=== PATIENT | female | born 1990 | race Caucasian/White ===

== ENCOUNTER 2018-06-01 07:06 | Inpatient (IN) | payer OTHER ==
--- NOTE | 2018-06-01 07:30 | PCM.LDHP ---
L&D History of Present Illness - General Date of Service: 06/01/18 Admit Problem/Dx: Admission Diagnosis/Problem Admission Diagnosis/Problem Source of Information: Patient History Limitations: Reports: No Limitations - History of Present Illness Introduction:: 27 yo at 39 weeks 1 day presents to labor and delivery for term induction of labor. No contractions today. No LOF, No VB. Good movement routine care Previous 1st Trimester SAB. GBS negative O negative STD negative Improves with: Reports: None Worsens with: Reports: None - Related Data Allergies/Adverse Reactions: Allergies Allergy/AdvReac Type Severity Reaction Status Date / Time No Known Allergies Allergy Verified 12/31/14 21:53 Home Medications: Home Meds Calcium Carbonate/Vitamin D3 [Calcium 600 + Vit D 400] 1 each PO DAILY 12/24/14 [History] Vit No.130/Iron/FA [ Vitamins] 1 each PO DAILY 12/24/14 [ History] Past Medical History HEENT History: Reports: Allergic Rhinitis - Past Surgical History Female Surgical History: Reports: Breast Biopsy Social & Family History - Living Situation & Occupation Living situation: Reports: H&P Review of Systems - Review of Systems: Review Of Systems: See Below General: Reports: No Symptoms HEENT: Reports: No Symptoms Pulmonary: Reports: No Symptoms Cardiovascular: Reports: No Symptoms Gastrointestinal: Reports: No Symptoms Genitourinary: Reports: No Symptoms Musculoskeletal: Reports: No Symptoms Skin: Reports: No Symptoms Psychiatric: Reports: No Symptoms Neurological: Reports: No Symptoms Hematologic/Lymphatic: Reports: No Symptoms Immunologic: Reports: No Symptoms L&D Exam - Exam Exam: See Below - OB Specific Movement: Active Heart Tones: Present Heart Tones per Min: 135 Heart Rate (FHR) Variability: Moderate (6-25 bmp) Presentation: Vertex Estimated Weight: 3250 - Mansfield Score Mansfield Score Cervix Position: Midposition Mansfield Score Consistency: Medium Mansfield Score Effacement: 31-50% Mansfield Score Dilation: 1-2 cm Mansfield Score 's Station: -3 Mansfield Score Total: 4 - Exam General: Alert, Oriented Genitourinary: Normal external exam Extremities: No Pedal Edema Skin: Warm, Dry Psychiatric: Alert, Normal Affect, Normal Mood Problem List Initiated/Reviewed/Updated: Yes Assessment/Plan Comment:: 27 yo at 39 w 1 d gestation presents for elective term induction of labor. Plan: Cytotec, plan to follow with pitocin. GBS negative-no antibiotics needed. Pain control per patient request.
[2018-06-01] MEDS ORDERED: Misoprostol 25 MCG (1/4 of 100 MCG) Tab VAG PRN (07:42)
[2018-06-01] MEDS ORDERED: Sodium Chloride 0.9% 10 ML Syringe FLUSH PRN ×2 (07:42→07:45)
[2018-06-01] MEDS ORDERED: Lactated Ringers 1,000 ML IV SCH ×2 (07:45)
[2018-06-01] MEDS ORDERED: Oxytocin/Lactated Ringers 10 UNIT/1,000 ML BAG IV SCH ×2 (07:45→17:00)
[2018-06-01] MEDS ORDERED: Nalbuphine 20 MG/ML 1 ML Syringe IVPUSH PRN (07:45)
[2018-06-01] MEDS ORDERED: fentaNYL 100 MCG/2 ML SDV EPIDUR PRN (11:32)
[2018-06-01] MEDS ORDERED: ePHEDrine 50 MG/ML SDV IVPUSH PRN (11:32)
[2018-06-01] MEDS ORDERED: Bupivacaine/fentaNYL/NS 100 ML Bag EPIDUR SCH (11:45)
--- NOTE | 2018-06-01 13:42 | PCM.PREANE ---
Preanesthetic Assessment - Anesthesia/Transfusion/Family Hx Anesthesia History: Prior Anesthesia Without Reaction Family History of Anesthesia Reaction: No Transfusion History: No Prior Transfusion(s) - Review of Systems General: No Symptoms Pulmonary: No Symptoms Cardiovascular: No Symptoms Gastrointestinal: Abdominal Pain (contractions) Neurological: No Symptoms Other: Reports: None - Physical Assessment Pulse: 86 O2 Sat by Pulse Oximetry: 98 Respiratory Rate: 18 Blood Pressure: 118/50 Temperature: 37.4 C Vital Signs: Last Vital Signs Temp 37.4 C 06/01/18 07:42 Pulse 81 06/01/18 07:42 Resp 18 06/01/18 07:42 BP 118/50 L 06/01/18 07:42 Pulse Ox 98 06/01/18 07:42 Height: 1.68 m Weight: 83.098 kg ASA Class: 2 Mental Status: Alert & Oriented x3 Airway Class: Mallampati = 1 Dentition: Reports: Normal Dentition Thyro-Mental Finger Breadths: 3 Mouth Opening Finger Breadths: 3 ROM/Head Extension: Full Lungs: Clear to Auscultation, Normal Respiratory Effort Cardiovascular: Regular Rate, Regular Rhythm - Lab Values: Laboratory Last Values WBC 9.58 K/mm3 (3.98-10.04) 06/01/18 08:05 RBC 4.33 M/mm3 (3.98-5.22) 06/01/18 08:05 Hgb 13.1 gm/L (11.2-15.7) 06/01/18 08:05 Hct 38.3 % (34.1-44.9) 06/01/18 08:05 MCV 88.5 fl (79.4-94.8) 06/01/18 08:05 MCH 30.3 pg (25.6-32.2) 06/01/18 08:05 MCHC 34.2 g/dl (32.2-35.5) 06/01/18 08:05 RDW Std Deviation 41.3 fL (36.4-46.3) 06/01/18 08:05 Plt Count 159 K/mm3 (182-369) L 06/01/18 08:05 MPV 10.4 fl (9.4-12.3) 06/01/18 08:05 RPR Non-reactive (NONREACTIVE) 06/01/18 08:05 - Allergies Allergies/Adverse Reactions: Allergies Allergy/AdvReac Type Severity Reaction Status Date / Time No Known Allergies Allergy Verified 12/31/14 21:53 - Anesthesia Plan Pre-Op Medication Ordered: None - Acknowledgements Anesthesia Type Planned: Epidural Pt an Appropriate Candidate for the Planned Anesthesia: Yes Alternatives and Risks of Anesthesia Discussed w Pt/Guardian: Yes Pt/Guardian Understands and Agrees with Anesthesia Plan: Yes PreAnesthesia Questionnaire HEENT History: Reports: Allergic Rhinitis Gastrointestinal History: Reports: GERD [employer]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: - Past Surgical History Female Surgical History: Reports: Breast Biopsy - SUBSTANCE USE Smoking Status *Q: Never Smoker Tobacco Use Within Last Twelve Months: No Second Hand Smoke Exposure: No Recreational Drug Use History: No - HOME MEDS Home Medications: Home Meds Calcium Carbonate/Vitamin D3 [Calcium 600 + Vit D 400] 1 each PO DAILY 12/24/14 [History] Vit No.130/Iron/FA [ Vitamins] 1 each PO DAILY 12/24/14 [ History] - CURRENT (IN HOUSE) MEDS Current Meds: Current Medications Ephedrine Sulfate (Ephedrine Sulfate) 5 mg IVPUSH ASDIRECTED PRN PRN Reason: HYPOTENTSION Fentanyl (Sublimaze) 100 mcg EPIDUR Q3H PRN PRN Reason: Pain Last Admin: 06/01/18 13:35 Dose: 100 mcg Fentanyl/Bupivacaine HCl (Fentanyl/Bupivacaine/Ns 2 Mcg-0.125% 100 Ml) 100 ml EPIDUR ASDIRECTED CAITLIN Last Admin: 06/01/18 13:35 Dose: 100 ml Lactated Ringer's (Ringers, Lactated) 1,000 mls @ 40 mls/hr IV ASDIRECTED CAITLIN Last Admin: 06/01/18 08:40 Dose: 40 mls/hr Oxytocin/Lactated Ringer's (Pitocin In Lr 10 Units/1,000 Ml) 10 unit in 1,000 mls @ 12 mls/hr IV TITRATE CAITLIN; Protocol Last Admin: 06/01/18 12:57 Dose: 2 munits/min, 12 mls/hr Lactated Ringer's (Ringers, Lactated) 1,000 mls @ 100 mls/hr IV ASDIRECTED CAITLIN Misoprostol (Cytotec) 25 mcg VAG Q4H PRN PRN Reason: cervical ripening Last Admin: 08/30/18 08:40 Dose: 25 mcg Nalbuphine HCl (Nubain) 10 mg IVPUSH Q2H PRN PRN Reason: pain Sodium Chloride (Saline Flush) 10 ml FLUSH ASDIRECTED PRN PRN Reason: Keep Vein Open Discontinued Medications Sodium Chloride (Saline Flush) 10 ml FLUSH ASDIRECTED PRN PRN Reason: Keep Vein Open
[2018-06-01] MEDS ORDERED: Lanolin 100% Cream 7 GM Tube TOP PRN (17:00)
[2018-06-01] MEDS ORDERED: Witch Hazel Medicated Pads 100/Jar TOP PRN (17:00)
[2018-06-01] MEDS ORDERED: Benzocaine/Menthol 20%-0.5% Spray 56 GM Canister TOP PRN (17:00)
--- NOTE | 2018-06-01 17:00 | PCM.DEL ---
L & D Note - General Info Date of Service: 06/01/18 Mother's Due Date: 05/08/18 - Delivery Note Labor: Augmented by Oxytocin Cervical Ripening Method: Prostaglandin E2 Delivery Outcome: Livebirth Infant Delivery Method: Spontaneous Vaginal Delivery-Single Infant Delivery Mode: Spontaneous Presentation: Left Occiput Anterior (BRANDYN) Nuchal Cord: None Anesthesia Type: Epidural Amniotic Fluid Description: Clear Episiotomy Type: Midline Laceration: 2nd Degree Suture type: Vicryl Suture size: 3-0 Placenta: Intact, Spontaneous Cord: 3 Vessels Estimated Blood Loss: 300 Resuscitation Needed: No Provider: Lori Cruz Delivery Comments (Free Text/Narrative):: AGA infant male born to mom at 39 weeks gestation via vaginal delivery. Epidural anesthesia. Midline episiotomy extended to 2nd degree laceration repaired in usual fashion with 3-0 vicryl suture. weight 8lbs 3 ounces. Apgars 8&9. EBL 300. Infant and mother in recovery room in stable condition. - General Info Date of Service: 06/01/18 - Patient Data Vitals - Most Recent: Last Vital Signs Temp 37.4 C 06/01/18 13:42 Pulse 86 06/01/18 13:42 Resp 18 06/01/18 13:42 BP 118/50 L 06/01/18 13:42 Pulse Ox 98 06/01/18 13:42 Weight - Most Recent: 83.098 kg I&O - Last 24 Hours: Intake & Output 06/01/18 06/01/18 06/01/18 06:59 14:59 22:59 Intake Total 1000 Balance 1000 Lab Results Last 24 Hours: Laboratory Results - last 24 hr 06/01/18 06/01/18 Range/Units 08:05 08:05 WBC 9.58 (3.98-10.04) K/mm3 RBC 4.33 (3.98-5.22) M/mm3 Hgb 13.1 (11.2-15.7) gm/L Hct 38.3 (34.1-44.9) % MCV 88.5 (79.4-94.8) fl MCH 30.3 (25.6-32.2) pg MCHC 34.2 (32.2-35.5) g/dl RDW Std Deviation 41.3 (36.4-46.3) fL Plt Count 159 L (182-369) K/mm3 MPV 10.4 (9.4-12.3) fl RPR Non-reactive (NONREACTIVE) Med Orders - Current: Current Medications Ephedrine Sulfate (Ephedrine Sulfate) 5 mg IVPUSH ASDIRECTED PRN PRN Reason: HYPOTENTSION Fentanyl (Sublimaze) 100 mcg EPIDUR Q3H PRN PRN Reason: Pain Last Admin: 06/01/18 13:35 Dose: 100 mcg Fentanyl/Bupivacaine HCl (Fentanyl/Bupivacaine/Ns 2 Mcg-0.125% 100 Ml) 100 ml EPIDUR ASDIRECTED CAITLIN Last Admin: 06/01/18 13:35 Dose: 100 ml Lactated Ringer's (Ringers, Lactated) 1,000 mls @ 40 mls/hr IV ASDIRECTED CAITLIN Last Admin: 06/01/18 08:40 Dose: 40 mls/hr Oxytocin/Lactated Ringer's (Pitocin In Lr 10 Units/1,000 Ml) 10 unit in 1,000 mls @ 12 mls/hr IV TITRATE CAITLIN; Protocol Last Admin: 06/01/18 12:57 Dose: 2 munits/min, 12 mls/hr Lactated Ringer's (Ringers, Lactated) 1,000 mls @ 100 mls/hr IV ASDIRECTED CAITLIN Last Admin: 06/01/18 13:35 Dose: 100 mls/hr Misoprostol (Cytotec) 25 mcg VAG Q4H PRN PRN Reason: cervical ripening Last Admin: 06/01/18 08:40 Dose: 25 mcg Nalbuphine HCl (Nubain) 10 mg IVPUSH Q2H PRN PRN Reason: pain Sodium Chloride (Saline Flush) 10 ml FLUSH ASDIRECTED PRN PRN Reason: Keep Vein Open Discontinued Medications Sodium Chloride (Saline Flush) 10 ml FLUSH ASDIRECTED PRN PRN Reason: Keep Vein Open - Problem List Review Problem List Initiated/Reviewed/Updated: Yes - My Orders Last 24 Hours: My Active Orders 06/01/18 07:42 Patient Status [ADT] Routine Communication Order [RC] ASDIRECTED Communication Order [RC] ASDIRECTED Communication Order [RC] ASDIRECTED Notify Provider [RC] ASDIRECTED Vital Signs [RC] ASDIRECTED Sodium Chloride 0.9% [Saline Flush] 10 ml FLUSH ASDIRECTED PRN miSOPROStol [Cytotec] 25 mcg VAG Q4H PRN Peripheral IV Insertion Adult [OM.PC] Routine 06/01/18 07:43 Peripheral IV Care [RC] . DIRECTED 06/01/18 07:45 Activity as Tolerated [RC] PFP Communication Order [RC] ASDIRECTED Non Stress Test [RC] PER UNIT ROUTINE Notify Provider [RC] PFP Notify Provider [RC] PRN Peripheral IV Care [RC] . DIRECTED Lactated Ringers [Ringers, Lactated] 1,000 ml IV ASDIRECTED Lactated Ringers [Ringers, Lactated] 1,000 ml IV ASDIRECTED Nalbuphine [Nubain] 10 mg IVPUSH Q2H PRN Oxytocin/Lactated Ringers [Pitocin in LR 10 Units/1,000 ML] 10 unit in 1,000 ml IV TITRATE Electronic Heart Tones Ext w TOCO [WOMSER] Routine Electronic Heart Tones Internal [WOMSER] Per Unit Routine Peripheral IV Insertion Adult [OM.PC] Routine Resuscitation Status Routine 06/01/18 Breakfast Regular Diet [DIET] - Plan Plan:: 27 yo at 39 w 1 d gestation presents for elective term induction of labor. Plan: Cytotec, plan to follow with pitocin. GBS negative-no antibiotics needed. Pain control per patient request.
[2018-06-01] MEDS ORDERED: Sertraline 50 MG Tab PO SCH (17:15)
[2018-06-01] MEDS ORDERED: Bupivacaine 0.25% 10 ML SDV ONE (22:00)
[2018-06-01] MEDS: Acetaminophen 325 MG Tab PO PRN (22:54)
[2018-06-02] MEDS: Acetaminophen 325 MG Tab PO PRN ×4 (06:02→17:52)
--- NOTE | 2018-06-02 10:35 | PCM48HPAN ---
Post Anesthesia Note - EVALUATION WITHIN 48HRS OF ANESTHETIC Vital Signs in Normal Range: Yes Patient Participated in Evaluation: Yes Respiratory Function Stable: Yes Airway Patent: Yes Cardiovascular Function Stable: Yes Hydration Status Stable: Yes Pain Control Satisfactory: Yes Nausea and Vomiting Control Satisfactory: Yes Mental Status Recovered: Yes
--- NOTE | 2018-06-02 12:56 | PCM.PRNOTE ---
- Free Text/Narrative Note: taken to procedure room and placed on the circumcision board. anesthesia provided with 0.8 cc of lidocaine without epi as a dorsal penile nerve block. circumcision completed in usual fashion. [place] Circumcision - Circumcision Procedure Time Out Performed: Yes Circumcision Performed By: Lori Cruz Anesthesia: Topical Analgesic Cream Device Used: gomco Dressing applied by: by provider Complications: No Condition: Good
--- NOTE | 2018-06-02 13:05 | PCM.DCSUM1 ---
Discharge Summary - Hospital Course Free Text/Narrative:: 27 yo at ppd #1 s/p vaginal delivery pain controlled lochia normal has been going well. Rhogam administered. d/c to home f/u [facility] in 6-8 weeks Diagnosis: Stroke: No - Discharge Data Discharge Date: 06/02/18 Discharge Disposition: Home, Self-Care 01 Condition: Good - Patient Instructions Diet: Usual Diet as Tolerated Activity: As Tolerated Driving: May Drive Today Showering/Bathing: May Shower Notify Provider of: Fever, Increased Pain, Swelling and Redness, Drainage, Nausea and/or Vomiting - Discharge Plan *PRESCRIPTION DRUG MONITORING PROGRAM REVIEWED*: Not Applicable *COPY OF PRESCRIPTION DRUG MONITORING REPORT IN PATIENT BECKI: Not Applicable Prescriptions/Med Rec: Sertraline [Zoloft] 50 mg PO DAILY #90 tablet Home Medications: Home Meds Calcium Carbonate/Vitamin D3 [Calcium 600 + Vit D 400] 1 each PO DAILY 12/24/14 [History] Vit No.130/Iron/FA [ Tablet] 1 each PO DAILY 12/24/14 [History] Benzocaine/Menthol [Dermoplast Pain Relief [place]] 1 applic TOP ASDIRECTED PRN canister 06/02/18 [Rx] Lanolin [Lansinoh HPA] 1 applic TOP ASDIRECTED PRN tube 06/02/18 [Rx] Sertraline [Zoloft] 50 mg PO DAILY #90 tablet 06/02/18 [Rx] Witch Riddhi [Tucks] 1 pad TOP ASDIRECTED PRN pad 06/02/18 [Rx] Patient Handouts: , Vaginal Delivery, Care After Referrals: Lori Cruz MD [Primary Care Provider] - (6-8 weeks ) - Discharge Summary/Plan Comment DC Time >30 min.: No - General Info Date of Service: 06/02/18 Functional Status: Reports: Pain Controlled, Tolerating Diet, Ambulating - Patient Data Vitals - Most Recent: Last Vital Signs Temp 36.7 C 06/02/18 08:51 Pulse 82 06/02/18 08:51 Resp 16 06/02/18 08:51 BP 102/64 06/02/18 08:51 Pulse Ox 98 06/02/18 08:51 Weight - Most Recent: 83.098 kg I&O - Last 24 hours: Intake & Output 08/30/18 08/31/18 08/31/18 22:59 06:59 14:59 Intake Total 2360 300 Balance 2360 300 Lab Results - Last 24 hrs: Laboratory Results - last 24 hr 06/01/18 06/02/18 Range/Units 08:05 10:05 RPR Non-reactive (NONREACTIVE) Blood Type O NEGATIVE Gel Antibody Screen Positive Screen 0 ros/5 flds - neg RhIG Candidate? Yes Rhogam Indicated Yes, baby rh pos H Med Orders - Current: Current Medications Acetaminophen (Tylenol) 650 mg PO Q4H PRN PRN Reason: Pain Last Admin: 06/02/18 10:05 Dose: 650 mg Benzocaine/Menthol (Dermoplast Pain Relief [place]) 0 gm TOP ASDIRECTED PRN PRN Reason: Perineal Comfort Measure Last Admin: 06/01/18 19:34 Dose: 1 canister Emollient Ointment (Lansinoh Hpa) 0 gm TOP ASDIRECTED PRN PRN Reason: Sore Nipples Ephedrine Sulfate (Ephedrine Sulfate) 5 mg IVPUSH ASDIRECTED PRN PRN Reason: HYPOTENTSION Fentanyl (Sublimaze) 100 mcg EPIDUR Q3H PRN PRN Reason: Pain Last Admin: 06/01/18 13:35 Dose: 100 mcg Fentanyl/Bupivacaine HCl (Fentanyl/Bupivacaine/Ns 2 Mcg-0.125% 100 Ml) 100 ml EPIDUR ASDIRECTED CAITLIN Last Admin: 06/01/18 13:35 Dose: 100 ml Lactated Ringer's (Ringers, Lactated) 1,000 mls @ 40 mls/hr IV ASDIRECTED CAITLIN Last Admin: 06/01/18 08:40 Dose: 40 mls/hr Oxytocin/Lactated Ringer's (Pitocin In Lr 10 Units/1,000 Ml) 10 unit in 1,000 mls @ 12 mls/hr IV TITRATE CAITLIN; Protocol Last Admin: 06/01/18 12:57 Dose: 2 munits/min, 12 mls/hr Lactated Ringer's (Ringers, Lactated) 1,000 mls @ 100 mls/hr IV ASDIRECTED CAITLIN Last Admin: 06/01/18 13:35 Dose: 100 mls/hr Oxytocin/Lactated Ringer's (Pitocin In Lr 10 Units/1,000 Ml) 10 unit in 1,000 mls @ 500 mls/hr IV TITRATE [facility] Misoprostol (Cytotec) 25 mcg VAG Q4H PRN PRN Reason: cervical ripening Last Admin: 06/01/18 08:40 Dose: 25 mcg Nalbuphine HCl (Nubain) 10 mg IVPUSH Q2H PRN PRN Reason: pain Sertraline HCl (Zoloft) 50 mg PO DAILY CAITLIN Last Admin: 06/02/18 08:47 Dose: 50 mg Sodium Chloride (Saline Flush) 10 ml FLUSH ASDIRECTED PRN PRN Reason: Keep Vein Open Witch Riddhi (Tucks) 1 pad TOP ASDIRECTED PRN PRN Reason: Hemorrhoid pain Last Admin: 06/01/18 19:36 Dose: 1 canister Discontinued Medications Bupivacaine HCl (Sensorcaine-Mpf 0.25%) 10 ml .ROUTE .STK-MED ONE Stop: 06/01/18 22:01 Sodium Chloride (Saline Flush) 10 ml FLUSH ASDIRECTED PRN PRN Reason: Keep Vein Open - General Info Date of Service: 06/02/18 - Patient Data Vital Signs - Most Recent: Last Vital Signs Temp 36.7 C 06/02/18 08:51 Pulse 82 06/02/18 08:51 Resp 16 06/02/18 08:51 BP 102/64 06/02/18 08:51 Pulse Ox 98 06/02/18 08:51 Weight - Most Recent: 83.098 kg I&O - Last 24 Hours: Intake & Output 06/01/18 06/02/18 06/02/18 22:59 06:59 14:59 Intake Total 2360 300 Balance 2360 300 Lab Results - Last 24 Hours: Laboratory Results - last 24 hr 06/01/18 06/02/18 Range/Units 08:05 10:05 RPR Non-reactive (NONREACTIVE) Blood Type O NEGATIVE Gel Antibody Screen Positive Screen 0 ros/5 flds - neg RhIG Candidate? Yes Rhogam Indicated Yes, baby rh pos H Med Orders - Current: Current Medications Acetaminophen (Tylenol) 650 mg PO Q4H PRN PRN Reason: Pain Last Admin: 06/02/18 10:05 Dose: 650 mg Benzocaine/Menthol (Dermoplast Pain Relief [place]) 0 gm TOP ASDIRECTED PRN PRN Reason: Perineal Comfort Measure Last Admin: 06/01/18 19:34 Dose: 1 canister Emollient Ointment (Lansinoh Hpa) 0 gm TOP ASDIRECTED PRN PRN Reason: Sore Nipples Ephedrine Sulfate (Ephedrine Sulfate) 5 mg IVPUSH ASDIRECTED PRN PRN Reason: HYPOTENTSION Fentanyl (Sublimaze) 100 mcg EPIDUR Q3H PRN PRN Reason: Pain Last Admin: 06/01/18 13:35 Dose: 100 mcg Fentanyl/Bupivacaine HCl (Fentanyl/Bupivacaine/Ns 2 Mcg-0.125% 100 Ml) 100 ml EPIDUR ASDIRECTED CAITLIN Last Admin: 06/01/18 13:35 Dose: 100 ml Lactated Ringer's (Ringers, Lactated) 1,000 mls @ 40 mls/hr IV ASDIRECTED CAITLIN Last Admin: 06/01/18 08:40 Dose: 40 mls/hr Oxytocin/Lactated Ringer's (Pitocin In Lr 10 Units/1,000 Ml) 10 unit in 1,000 mls @ 12 mls/hr IV TITRATE [facility]; Protocol Last Admin: 06/01/18 12:57 Dose: 2 munits/min, 12 mls/hr Lactated Ringer's (Ringers, Lactated) 1,000 mls @ 100 mls/hr IV ASDIRECTED [facility] Last Admin: 06/01/18 13:35 Dose: 100 mls/hr Oxytocin/Lactated Ringer's (Pitocin In Lr 10 Units/1,000 Ml) 10 unit in 1,000 mls @ 500 mls/hr IV TITRATE CAITLIN Misoprostol (Cytotec) 25 mcg VAG Q4H PRN PRN Reason: cervical ripening Last Admin: 06/01/18 08:40 Dose: 25 mcg Nalbuphine HCl (Nubain) 10 mg IVPUSH Q2H PRN PRN Reason: pain Sertraline HCl (Zoloft) 50 mg PO DAILY [facility] Last Admin: 06/02/18 08:47 Dose: 50 mg Sodium Chloride (Saline Flush) 10 ml FLUSH ASDIRECTED PRN PRN Reason: Keep Vein Open Witch Riddhi (Tucks) 1 pad TOP ASDIRECTED PRN PRN Reason: Hemorrhoid pain Last Admin: 06/01/18 19:36 Dose: 1 canister Discontinued Medications Bupivacaine HCl (Sensorcaine-Mpf 0.25%) 10 ml .ROUTE .STK-MED ONE Stop: 06/01/18 22:01 Sodium Chloride (Saline Flush) 10 ml FLUSH ASDIRECTED PRN PRN Reason: Keep Vein Open - Interaction Disposition, : in Room with Family Infant Interaction: Holding Feeding: Breastfed Infant; Nursed Well Support Person: - Recovery Exam Fundal Tone: Firm Fundal Level: 1 Fingerbreadths Below Umbilicus Fundal Placement: Midline Lochia Amount: Small Lochia Color: Rubra/Red Episiotomy/Laceration: Approximated Bladder Status: Voiding Urinary Elimination: Voided - Exam General: Alert, Oriented Extremities: No Pedal Edema Skin: Warm, Dry
[2018-06-02 15:28] VITALS: BP 129/81
== END 2018-06-02 18:25 | disposition home or self-care (01) | DRG 775 ==
LOC: JD.OBCHECK 07:06 → JD.OB 07:42 → OBSVTOIN 16:25
PROVIDERS: ADMIT Family Medicine; ATTEND Family Medicine
PROC: 0KQM0ZZ Repair Perineum Muscle, Open Approach (ICD-10-PCS; principal; 2018-06-01)
PROC: 10907ZC Drainage of Amniotic Fluid, Therapeutic from Products of Conception, Via Natural or Artificial Opening (ICD-10-PCS; principal; 2018-06-01)
PROC: 3E0P7VZ Introduction of Hormone into Female Reproductive, Via Natural or Artificial Opening (ICD-10-PCS; principal; 2018-06-01)
PROC: 3E033VJ Introduction of Other Hormone into Peripheral Vein, Percutaneous Approach (ICD-10-PCS; principal; 2018-06-01)
PROC: 10E0XZZ Delivery of Products of Conception, External Approach (ICD-10-PCS; principal; 2018-06-01)
PROC: 0W8NXZZ Division of Female Perineum, External Approach (ICD-10-PCS; principal; 2018-06-01)
PROC: 3E0R3BZ Introduction of Anesthetic Agent into Spinal Canal, Percutaneous Approach (ICD-10-PCS; 2018-06-01)
PROC: 00HU33Z Insertion of Infusion Device into Spinal Canal, Percutaneous Approach (ICD-10-PCS; 2018-06-01)
PROC: 3E0234Z Introduction of Serum, Toxoid and Vaccine into Muscle, Percutaneous Approach (ICD-10-PCS; 2018-06-02)
DX: O70.1 Second degree perineal laceration during delivery (principal); Z37.0 Single live birth; Z3A.39 39 weeks gestation of pregnancy; O26.893 Other specified pregnancy related conditions, third trimester; Z67.41 Type O blood, Rh negative
CPT/HCPCS: 36415; 51702; 59025; 59300; 59409; 85027; 85461; 86592; 86850; 86870; 86900; 86901; A9270-GY; J2590; J2790; J3010; J3490; J7120

== ENCOUNTER 2022-06-20 10:55 | Inpatient (IN) | payer BC ==
[2022-06-20] MEDS ORDERED: Sodium Chloride 0.9% 10 ML Syringe FLUSH PRN (11:03)
[2022-06-20] MEDS ORDERED: Nalbuphine HCl 10 MG/ 1ML Amp IVPUSH PRN (11:03)
[2022-06-20] MEDS ORDERED: Acetaminophen 325 MG Tab PO PRN ×2 (11:03→18:22)
[2022-06-20] MEDS ORDERED: Oxytocin/Lactated Ringers 20 UNIT/1,000 ML BAG IV SCH ×2 (11:15→18:30)
[2022-06-20] MEDS ORDERED: Lactated Ringers 1,000 ML IV SCH (11:15)
[2022-06-20] MEDS ORDERED: Oxytocin/Lactated Ringers 10 UNIT/1,000 ML BAG IV SCH ×2 (11:15)
[2022-06-20] MEDS ORDERED: Terbutaline 1 MG/ML SDV SUBCUT STA (15:27)
[2022-06-20] MEDS ORDERED: Lidocaine 1% 50 ML MDV ONE (17:54)
[2022-06-20] MEDS ORDERED: Docusate Sodium 100 MG Cap PO PRN (18:22)
[2022-06-20] MEDS ORDERED: Witch Hazel Medicated Pads 40/Jar TOP PRN (18:22)
[2022-06-20] MEDS ORDERED: Benzocaine/Menthol 20%-0.5% Spray 78 GM Cannister TOP PRN (18:22)
[2022-06-20] MEDS ORDERED: Hydrocortisone Acetate 25 MG Supp RECTAL PRN (18:22)
[2022-06-20] MEDS: Ibuprofen 600 MG Tab PO PRN (21:00)
[2022-06-20] MEDS ORDERED: Sodium Chloride 0.9% 10 ML Syringe FLUSH SCH (21:00)
[2022-06-20] MEDS: Sertraline 50 MG Tab PO SCH (21:00)
[2022-06-21] MEDS: Ibuprofen 600 MG Tab PO PRN ×2 (05:00→13:57)
[2022-06-21] MEDS ORDERED: Prenatal Multivitamin with Calcium/Folic Acid/Iron Tab PO SCH (09:00)
[2022-06-21] MEDS: Sertraline 50 MG Tab PO SCH (13:57)
[2022-06-21 14:09] VITALS: BP 114/60; PULSE 82
== END 2022-06-21 19:27 | disposition home or self-care (01) | DRG 560 ==
LOC: JD.OB 10:55 → OBSVTOIN 17:46 → JD.OB 17:47
PROVIDERS: ADMIT Obstetrics & Gynecology; ATTEND Obstetrics & Gynecology
PROC: 10E0XZZ Delivery of Products of Conception, External Approach (ICD-10-PCS; principal; 2022-06-20)
PROC: 10907ZC Drainage of Amniotic Fluid, Therapeutic from Products of Conception, Via Natural or Artificial Opening (ICD-10-PCS; 2022-06-20)
PROC: 0HQ9XZZ Repair Perineum Skin, External Approach (ICD-10-PCS; 2022-06-20)
PROC: 3E0334Z Introduction of Serum, Toxoid and Vaccine into Peripheral Vein, Percutaneous Approach (ICD-10-PCS; 2022-06-21)
DX: O69.81X0 Labor and delivery complicated by cord around neck, without compression, not applicable or unspecified (principal); Z37.0 Single live birth; O70.0 First degree perineal laceration during delivery; O71.82 Other specified trauma to perineum and vulva; Z3A.40 40 weeks gestation of pregnancy; O99.344 Other mental disorders complicating childbirth; F41.9 Anxiety disorder, unspecified; O99.62 Diseases of the digestive system complicating childbirth; K21.9 Gastro-esophageal reflux disease without esophagitis; F32.A Depression, unspecified; O26.893 Other specified pregnancy related conditions, third trimester; Z67.41 Type O blood, Rh negative; Z79.899 Other long term (current) drug therapy
CPT/HCPCS: 36415; 36430; 59025; 59409; 85025; 85461; 86592; 86850; 86900; 86901; A9270-GY; J2001; J2590; J2790; J3105; J7120